=== PATIENT | female | born 1940 | race Caucasian/White ===

== ENCOUNTER → 2017-08-26 11:56 | Outpatient (CLI) | payer MEDICARE, SELFPAY ==
--- NOTE | 2017-08-26 12:03 | RAD_ITS ---
STUDY: X-RAY - LUMBAR SPINE REASON FOR EXAM: Female, 77 years old. Lower back pain TECHNIQUE: 5 view(s) of the lumbar spine were obtained. COMPARISON: None FINDINGS: Normal lumbar lordosis. There is no substantial scoliosis. There is a normal alignment of the vertebrae. There is generalized demineralization of the vertebral bodies. There is multi-level degenerative disc disease with multi-level disc space narrowing. The soft tissue structures are unremarkable. RAD/L/S Spine Min 4 Views IMPRESSION: Degenerative changes of the spine, as detailed above. Electronically Signed: James Little MD at 7:25 EDT Tel , Service support ,
--- NOTE | 2017-08-26 12:03 | RAD_ITS ---
STUDY: X-RAY - PELVIS AND LEFT HIP REASON FOR EXAM: Female, 77 years old. LOW BACK PAIN TECHNIQUE: Radiological exam, hip, unilateral, with pelvis when performed; 2 or 3 views. COMPARISON: None. FINDINGS: There is a non-specific bowel gas pattern. Normal visualized soft tissue structures. There is narrowing with cortical sclerosis and osteophyte formation of the sacroiliac joint consistent with degenerative osteoarthritic changes. Normal bilateral superior and inferior pubic rami. There are degenerative changes of the pubic symphysis with articular narrowing and sclerosis. Normal bilateral ischial tuberosities. There are osteoarthritic changes of the femoral head with marginal osteophyte formation. There is osteoarthritic spur formation of the acetabular rim. Severe articular joint space narrowing of the hip. RAD/Hip 2-3 Views with Pelvis IMPRESSION: There are osteoarthritic changes of the pelvis and hip. Electronically Signed: James Little MD at 7:33 EDT Tel , Service support ,
== END ==
PROVIDERS: Family Provider Internal Medicine; PCP Internal Medicine; Visit Provider Anesthesiology Pain Medicine
DX: M54.9 Dorsalgia, unspecified (principal)
CPT/HCPCS: 72110; 73502

== ENCOUNTER 2017-09-29 11:30 | Outpatient (RCR) | payer MEDICARE, SELFPAY ==
--- NOTE | 2017-08-28 14:54 | HP.PTEVAL_ITS ---
Patient's Visit Information HIRA VILLARREAL is a 77 year old F referred to Physical Therapy by Kehinde Jang with a diagnosis of Back and Hip Pain. Date of Evaluation: 08/28/17 Physical Therapist: Maggie Abdullahi, PT - Visit Plan Frequency: 2x /Week Duration: 4 Weeks Plan: Therapeutic exercises and activities to target BLE, core and low back strength, endurance and range of motion on land and in an aquatic setting. Gait training and Postural training for improved mobility. Modalities and Manual as needed to decrease pain and increase range of motion. Incorporate HEP to promote maintainence and independence. - Subjective Subjective: Patient presents in therapy today with chief complaint left buttock pain. Noticed it first a couple months ago when pulling weeds as a little twinge but progressly has gotten worse. Pain worsens when walking and sometimes when lying. Pain feels better when sitting but not completely better. She has been taking ibuprofen and milaxican to help relieve pain. She had x-rays done of left hip and low back showing normal degenerative changes. No reports or numbness or tingling. PMHx: fall causing 6 broken ribs and collar bone 5 years ago, diabetes - Pain low back pain Pain Intensity (Out of 10): 0 Pain Intensity Range: 0, 5 Comment: worsen with prolonged walking - Objective Posture: Sitting slouched with increased posterior pelvic tilt in chair; Static standing upright equal WB through BLE forward, protruded cervical spine, good lordosis. Appearance: No swelling. Palpation: Tenderness to palpation along left piriformis; Tightness of bilateral lumbar paraspinals; ASIS, medial malleoli and ischial tub equal. Sensation: Intact to light touch. Range of Motion: Lumbar flexion WNL, lumbar extension moderate limitation and pain, lumbar left rotation moderate limitation and pain, lumbar right rotation mild limitation, left/right sidebending minimal limitation. Hips/ knees WFL. Strength: RLE grossly 4+/5 strength except right hip abduction 4/5, hip extension 4/5, hip flexion 4/5; LLE grossly 4/5 except left hip flexion 4-/5, left hip abduction 4-/5; core 3/5 strength. Flexibility: Moderate tightness of bilateral piriformis muscles, L > R; Hamstring -15* knee extension bilaterally. Gait: Patient ambulating with flat foot to shuffling progression with equal stance time bilaterally; Mild hip drop bilaterally. Repeated movements: Patient had increased pain, however, centralizing with repeated extension 2 x 10 - Goals Goal 1:: Patient will increase core strength by 1 muscle grade for improved posture Goal Time Frame: 4-6 Weeks Goal 2:: Patient will increase lumbar range of motion in all planes for improved mobility Goal Time Frame: 4-6 Weeks Goal 3:: Patient will increase hamstring flexibility by 5* bilaterally for improved mobility Goal Time Frame: 4-6 Weeks Goal 4:: Patient will increase LLE to match RLE for improved performance with functional mobility tasks Goal Time Frame: 4-6 Weeks - Rehabilitation Potential Physical Therapy Diagnosis: Muscle Weakness, Limited Range of Motion Rehabilitation Potential: Fair - Anticipated Interventions Patient/Client Instruction: Educate patient on: Condition, Plan of Care For the Purpose of:: To decrease pain, To increase ROM, To improve muscle performance and motor function, To improve ability to perform ADL's, To improve performance and independence with ADL's, To improve ability of physical actions for home/community/work/leisure, To increase flexibility/ROM, To improve endurance Therapeutic Exercise to Include: Strength training, Endurance training, Body mechanics, Postural training, Flexibilty training, Gait and locomotor training, In an aquatic setting, Passive ROM, Active ROM, Dynamic Lumbar Stabilization, Junie Exercises For the Purpose of:: To increase ROM, To improve muscle performance and motor function, To improve ability to perform ADL's, To improve ability of physical actions for home/community/work/leisure, To improve gait and locomotor functions , To increase flexibility/ROM, To improve endurance, To improve safety with gait Functional Training to Include: Gait training For the Purpose of:: To improve ability of physical actions for home/community/ work/leisure, To improve gait and locomotor functions Comment: massage not covered by insurance For the Purpose of:: To decrease pain, To increase ROM, To increase flexibility/ ROM Iontophoresis (with Dexamethozone, with Acetic acid): No - not covered by insurance For the Purpose of:: To decrease pain, To increase ROM, To increase flexibility/ ROM Thank you for the opportunity to evaluate your patient. For Medicare and Medicare HMO plans, please review the plan of care and approve it. It will need to be FAXED BACK to us at [phone] for Medicare purposes. Please let me know if there are questions or concerns regarding this plan of care. Physician Signature: Date:
--- NOTE | 2017-09-29 12:01 | HP.PTDCSUM ---
HP - PT D/C Summary It has been my pleasure to treat HIRA VILLARREAL under orders from Kehinde Jang, for the diagnosis of Back and Hip Pain for a total of 10 visit(s). Discharge Date: 09/29/17 Please see the following information for a summary of their discharge status. - Subjective Subjective: Had injection a month ago and sent for PT. It really has not helped. Took x james t the time but no MRI. L leg still hurts lateral hip to front of knee and stops into buttock, not in LB. Injection was in back. Pain gets to 8/10 lateral hip with walking which gets much better upon sitting. Hurts going to bed lying on L side. No falls. Currently no pain. Sees Dr. Jang next week. - Pain low back pain Pain Intensity (Out of 10): 0 - Overall Improvement % Improvement: 0 - Objective Objective/Function: AROM L hip rotations are painful groin and limited slightly as compared to R at 40 degrees ext rot adn 8 IR. Is painful to walk today, felxibility in L HS to 90/90 test is -25. Strength in B hips is 4/5 without pain. has pain with end range PROm rotations and with scour test at hip. LB AROM painfree and only minimally limited. CLINICALLY LOOKS LIKE HIP DEGENERATION MAY BE MAJORITY OF THE PROBLEM. OT NOT HELPING AND RECOMMEND RETURN TO DOCTOR FOR NEXT MEDICAL STEP. - Goals Goal 1:: Patient will increase core strength by 1 muscle grade for improved posture Goal Progress: Not Progressing Goal 2:: Patient will increase lumbar range of motion in all planes for improved mobility Goal Progress: Not Progressing Goal 3:: Patient will increase hamstring flexibility by 5* bilaterally for improved mobility Goal Progress: Not Progressing Goal 4:: Patient will increase LLE to match RLE for improved performance with functional mobility tasks Goal Progress: Not Progressing - Plan Plan: D/C, BACK TO DOCTOR. - D/C Information Discharge Comments: nO IMPROVEMENT. lOOKS TO BE HIP ARTHRITIS TO ME. rECOMMEND PATIENT BACK TO DOCTOR FOR NEXT MEDICAL STEP. If there are questions or concerns regarding this patient's physical therapy, please feel free to call me at [phone]. Thank you for the referral of this patient. Sincerely, Nnamdi Miller, DPT, OC
== END 2017-09-29 19:00 | disposition home or self-care (01) ==
LOC: PT 11:30
PROVIDERS: Family Provider Internal Medicine; PCP Internal Medicine; Visit Provider Anesthesiology Pain Medicine
DX: M54.9 Dorsalgia, unspecified (principal); M79.643 Pain in unspecified hand
CPT/HCPCS: 97110; 97113; 97162; 97530

== ENCOUNTER 2017-11-18 20:26 | Observation (INO) | payer MEDICARE, SELFPAY ==
[2017-11-18 20:28] VITALS: BP 96/47; PULSE 107; RESP 18; TEMP 38; O2SAT 99; BMI 25.7
--- NOTE | 2017-11-18 20:51 | EKG12_ITS ---
Test Reason : Blood Pressure : / mmHG Vent. Rate : 098 BPM Atrial Rate : 098 BPM P-R Int : 130 ms QRS Dur : 084 ms QT Int : 324 ms P-R-T Axes : 034 043 043 degrees QTc Int : 413 ms Normal sinus rhythm Nonspecific ST abnormality Abnormal ECG Confirmed by RAÚL GARRIDO, BRAULIO ([id number]), science editor DAMIAN BLAKELY ([id number]) on 11/23/2017 3:14:44 PM Referred By: YOLANDA Confirmed By:BRAULIO OLSEN MD
[2017-11-18 20:55] LABS: Bedside Glucose 154 mg/dL (70-110)
--- NOTE | 2017-11-18 20:55 | RAD_ITS ---
STUDY: X-RAY CHEST REASON FOR EXAM: Female, 77 years old. Fever TECHNIQUE: Single frontal view COMPARISON: June 14, 2013 FINDINGS: The lungs are clear and expanded. There is no demonstrated pleural abnormality. Normal size heart. Normal mediastinum and juan a. Normal visualized pulmonary arteries. Normal visualized aortic arch and descending thoracic aorta. Mild degenerative changes of the visualized thoracic spine. Old left clavicular and left rib fractures. There is no demonstrated abnormality of the visualized soft tissue structures of the upper abdomen. RAD/Chest 1 View (Portable) IMPRESSION: No acute pulmonary pathology of the chest. Electronically Signed: Yao Mullins DO at 21:09 EDT Tel [phone], Service support ,
[2017-11-18 20:56] VITALS: TEMP 36.7
[2017-11-18 21:15] VITALS: BP 121/59; PULSE 97; RESP 26; O2SAT 100
--- NOTE | 2017-11-18 21:15 | CT_ITS ---
STUDY: CT BRAIN WITHOUT CONTRAST REASON FOR EXAM: Female, 77 years old. Confusion RADIATION DOSAGE (If Supplied By Facility): CTDIvol = ( 44.99 ) mGy, DLP = ( 745.49 ) mGycm TECHNIQUE: Transaxial CT imaging of the brain was performed without administration of intravenous contrast material. Individualized dose optimization techniques were used for this CT. COMPARISON: None. FINDINGS: Normal soft tissue structures. Normal calvarium. Normal size ventricles and extra-axial spaces for the patient's age. Mild white matter microangiopathic ischemic changes of the cerebral hemispheres. Normal basal ganglia and thalami. Normal brainstem. Normal cerebellum. There is no intracranial hemorrhage. There are no findings of an acute ischemic infarction. Normal visualized paranasal sinuses. CT/Brain/Head without Contrast IMPRESSION: Mild age-related changes of the brain. Electronically Signed: Yao Mullins DO at 21:46 EDT Tel [phone], Service support ,
--- NOTE | 2017-11-18 21:15 | ED.VISSUMM ---
- ER Visit Summary Date of Service: 11/18/17 Chief Complaint: Confusion History of Present Illness: The patient is a 77 F who presents for 1 week of confusion. History is provided mainly by the . He states patient is becoming more forgetful for the last several months. However for the last week she has been sleeping 24 hours a day. He woke her up and took her to druze, and members of the sabianism noticed how somnolent she was. She has had decreased urine output and increased confusion. She was diagnosed with a urine infection and dehydration a few days ago by her primary care doctor. She was placed on Keflex and has had 3 doses. She continues to have increased confusion and somnolence. Patient denies any fever, chest pain, shortness of breath, cough, abdominal pain, nausea or vomiting, urinary symptoms, headache or any other complaints. Patient has history of diabetes, hypertension and hypercholesterolemia. She is on donepezil. She lives with family. No known recent head trauma. Patient does have a history of a traumatic intracranial hemorrhage 5 years ago. Physical Examination: Vital signs: Febrile at 100.4, mildly hypotensive, tachycardic at 107, no hypoxia on room air General: well nourished, well developed, in no distress, ambulates easily with assistance Skin: warm, dry, no rash, no pallor HEENT: normocephalic and atraumatic; PERRL, EOMI, moist mucous membranes Cardiovascular: Tachycardic rate and rhythm without murmurs, no peripheral edema, 2+ pulses all distal extremities Respiratory: No increased work of breathing, lungs are clear to auscultation bilaterally, no rales, rhonchi or wheezing Abdominal: Abdomen is soft, nontender with normoactive bowel sounds, no guarding or rebound, no masses MSK: Moves all extremities, no deformities, normal strength Neuro: Awake and alert, oriented ?4. No facial droop, sensation and motor function intact and symmetric Test Results: Abnormal Lab Results 11/18/17 11/18/17 11/18/17 20:48 20:55 20:55 WBC 14.9 H RBC 4.26 Hgb 12.8 Hct 37.2 MCV 87.3 MCH 30.0 MCHC 34.4 RDW 12.4 RDW Differential 39.3 Plt Count 339 MPV 11.7 Immature Gran % (Auto) 0.400 Neut % (Auto) 80.7 H Lymph % (Auto) 6.8 L [place] % (Auto) 11.7 H Eos % (Auto) 0.1 Baso % (Auto) 0.3 Absolute Neuts (auto) 12.1 H Absolute Lymphs (auto) 1.02 Total Counted Not Reportable Differential Comment SCANNED PT 13.9 INR 1.1 APTT 29.9 Sodium Potassium Chloride Carbon Dioxide Anion Gap BUN Creatinine Estim Creat Clear Calc Est GFR (MDRD) Af Amer Est GFR (MDRD) Non-Af BUN/Creatinine Ratio Glucose Lactic Acid Calcium Total Bilirubin AST ALT Alkaline Phosphatase Total Creatine Kinase Troponin I Total Protein Albumin Globulin Albumin/Globulin Ratio Urine Color Urine Clarity Urine pH Ur Specific [place] Urine Protein Urine Glucose (UA) Urine Ketones Urine Occult Blood Urine Nitrite Urine Bilirubin Urine Urobilinogen Ur Leukocyte Esterase Urine RBC Urine WBC Ur Squamous Epith Cells Urine Bacteria Urine Mucus POC Glucose 154 H 11/18/17 11/18/17 11/18/17 20:55 21:40 21:53 WBC RBC Hgb Hct MCV MCH MCHC RDW RDW Differential Plt Count MPV Immature Gran % (Auto) Neut % (Auto) Lymph % (Auto) Maury % (Auto) Eos % (Auto) Baso % (Auto) Absolute Neuts (auto) Absolute Lymphs (auto) Total Counted Differential Comment PT INR APTT Sodium 134 L Potassium 3.9 Chloride 98 Carbon Dioxide 28.0 Anion Gap 8 BUN 22 H Creatinine 1.28 H Estim Creat Clear Calc 34.46 Est GFR (MDRD) Af Amer 52 L Est GFR (MDRD) Non-Af 43 L BUN/Creatinine Ratio 17.2 Glucose 155 H Lactic Acid 1.2 Calcium 8.8 Total Bilirubin 1.00 AST 11 L ALT 25 Alkaline Phosphatase 100 Total Creatine Kinase 40 Troponin I < 0.015 Total Protein 7.1 Albumin 2.8 L Globulin 4.3 H Albumin/Globulin Ratio 0.7 L Urine Color Yellow Urine Clarity Sl. Cloudy Urine pH 5.0 Ur Specific [place] 1.010 Urine Protein 100 H Urine Glucose (UA) Normal Urine Ketones Negative Urine Occult Blood 150 H Urine Nitrite Negative Urine Bilirubin Negative Urine Urobilinogen Normal Ur Leukocyte Esterase 500 H Urine RBC 0-5 SEEN Urine WBC 10-25 SEEN Ur Squamous Epith Cells 0 SEEN Urine Bacteria 0 SEEN Urine Mucus 0 SEEN POC Glucose Clinical Impression(s) from Imaging Studies Chest X-Ray 11/18/17 20:55 IMPRESSION: No acute pulmonary pathology of the chest. Electronically Signed: Yao Mullins DO at 21:09 EDT Tel [phone], Service support , Brain CT 11/18/17 21:15 IMPRESSION: Mild age-related changes of the brain. Electronically Signed: Yao Mullins DO at 21:46 EDT Tel [phone], Service support , Medications Given Sodium Chloride () 1,000 mls @ 250 mls/hr IV .Q4H MO Last Admin: 11/18/17 23:33 Dose: 250 mls/hr Admin: 11/18/17 21:31 Dose: 250 mls/hr Discontinued Medications Ceftriaxone Sodium (Rocephin) 1 gm in 50 mls @ 100 mls/hr IV X1 ONE Stop: 11/18/17 23:40 Last Admin: 11/18/17 23:33 Dose: 100 mls/hr Emergency Department Course and Treatment: She presents with increased confusion, somnolence, on outpatient treatment for UTI, febrile and tachycardic. This is concerning for possible sepsis. Sepsis workup was performed. Patient was given IV fluids. Head CT was performed given the confusion and showed no intracranial hemorrhage or mass lesions. Labs were remarkable for leukocytosis of 14.9. Chest x-ray showed no pneumonia. Urine was positive for infection. Urine culture is pending. Lactate was normal at 1.2. EKG showed no ischemic changes and troponin was negative. Patient was started on Rocephin. Patient will be admitted for further management of acute cystitis and sepsis. Treatment Plan: [] Disposition: [] Impression: Urinary tract infection, cystitis, change in mental status This note was generated with [employer] software. It may contain incorrect words, spelling, and punctuation that were not noted in review of the chart prior to signing ED Disposition - Plan for ED Patient: Chief Complaint: Confusion Referrals: Ricardo Soliz MD [Primary Care Provider] -
--- NOTE | 2017-11-18 21:18 | ED.DCSUM_ITS ---
- ER Visit Summary Date of Service: 11/18/17 Chief Complaint: Confusion History of Present Illness: The patient is a 77 F who presents for 1 week of confusion. History is provided mainly by the . He states patient is becoming more forgetful for the last several months. However for the last week she has been sleeping 24 hours a day. He woke her up and took her to hindu, and members of the pentecostalism noticed how somnolent she was. She has had decreased urine output and increased confusion. She was diagnosed with a urine infection and dehydration a few days ago by her primary care doctor. She was placed on Keflex and has had 3 doses. She continues to have increased confusion and somnolence. Patient denies any fever, chest pain, shortness of breath, cough, abdominal pain, nausea or vomiting, urinary symptoms, headache or any other complaints. Patient has history of diabetes, hypertension and hypercholesterolemia. She is on donepezil. She lives with family. No known recent head trauma. Patient does have a history of a traumatic intracranial hemorrhage 5 years ago. Physical Examination: Vital signs: Febrile at 100.4, mildly hypotensive, tachycardic at 107, no hypoxia on room air General: well nourished, well developed, in no distress, ambulates easily with assistance Skin: warm, dry, no rash, no pallor HEENT: normocephalic and atraumatic; PERRL, EOMI, moist mucous membranes Cardiovascular: Tachycardic rate and rhythm without murmurs, no peripheral edema, 2+ pulses all distal extremities Respiratory: No increased work of breathing, lungs are clear to auscultation bilaterally, no rales, rhonchi or wheezing Abdominal: Abdomen is soft, nontender with normoactive bowel sounds, no guarding or rebound, no masses MSK: Moves all extremities, no deformities, normal strength Neuro: Awake and alert, oriented ?4. No facial droop, sensation and motor function intact and symmetric Test Results: Abnormal Lab Results 11/18/17 11/18/17 11/18/17 20:48 20:55 20:55 WBC 14.9 H RBC 4.26 Hgb 12.8 Hct 37.2 MCV 87.3 MCH 30.0 MCHC 34.4 RDW 12.4 RDW Differential 39.3 Plt Count 339 MPV 11.7 Immature Gran % (Auto) 0.400 Neut % (Auto) 80.7 H Lymph % (Auto) 6.8 L [place] % (Auto) 11.7 H Eos % (Auto) 0.1 Baso % (Auto) 0.3 Absolute Neuts (auto) 12.1 H Absolute Lymphs (auto) 1.02 Total Counted Not Reportable Differential Comment SCANNED PT 13.9 INR 1.1 APTT 29.9 Sodium Potassium Chloride Carbon Dioxide Anion Gap BUN Creatinine Estim Creat Clear Calc Est GFR (MDRD) Af Amer Est GFR (MDRD) Non-Af BUN/Creatinine Ratio Glucose Lactic Acid Calcium Total Bilirubin AST ALT Alkaline Phosphatase Total Creatine Kinase Troponin I Total Protein Albumin Globulin Albumin/Globulin Ratio Urine Color Urine Clarity Urine pH Ur Specific [place] Urine Protein Urine Glucose (UA) Urine Ketones Urine Occult Blood Urine Nitrite Urine Bilirubin Urine Urobilinogen Ur Leukocyte Esterase Urine RBC Urine WBC Ur Squamous Epith Cells Urine Bacteria Urine Mucus POC Glucose 154 H 11/18/17 11/18/17 11/18/17 20:55 21:40 21:53 WBC RBC Hgb Hct MCV MCH MCHC RDW RDW Differential Plt Count MPV Immature Gran % (Auto) Neut % (Auto) Lymph % (Auto) [place] % (Auto) Eos % (Auto) Baso % (Auto) Absolute Neuts (auto) Absolute Lymphs (auto) Total Counted Differential Comment PT INR APTT Sodium 134 L Potassium 3.9 Chloride 98 Carbon Dioxide 28.0 Anion Gap 8 BUN 22 H Creatinine 1.28 H Estim Creat Clear Calc 34.46 Est GFR (MDRD) Af Amer 52 L Est GFR (MDRD) Non-Af 43 L BUN/Creatinine Ratio 17.2 Glucose 155 H Lactic Acid 1.2 Calcium 8.8 Total Bilirubin 1.00 AST 11 L ALT 25 Alkaline Phosphatase 100 Total Creatine Kinase 40 Troponin I < 0.015 Total Protein 7.1 Albumin 2.8 L Globulin 4.3 H Albumin/Globulin Ratio 0.7 L Urine Color Yellow Urine Clarity Sl. Cloudy Urine pH 5.0 Ur Specific [place] 1.010 Urine Protein 100 H Urine Glucose (UA) Normal Urine Ketones Negative Urine Occult Blood 150 H Urine Nitrite Negative Urine Bilirubin Negative Urine Urobilinogen Normal Ur Leukocyte Esterase 500 H Urine RBC 0-5 SEEN Urine WBC 10-25 SEEN Ur Squamous Epith Cells 0 SEEN Urine Bacteria 0 SEEN Urine Mucus 0 SEEN POC Glucose Clinical Impression(s) from Imaging Studies Chest X-Ray 11/18/17 20:55 IMPRESSION: No acute pulmonary pathology of the chest. Electronically Signed: Yao Mullins DO at 21:09 EDT Tel [phone], Service support , Brain CT 11/18/17 21:15 IMPRESSION: Mild age-related changes of the brain. Electronically Signed: Yao Mullins DO at 21:46 EDT Tel [phone], Service support , Medications Given Sodium Chloride () 1,000 mls @ 250 mls/hr IV .Q4H MO Last Admin: 11/18/17 23:33 Dose: 250 mls/hr Admin: 11/18/17 21:31 Dose: 250 mls/hr Discontinued Medications Ceftriaxone Sodium (Rocephin) 1 gm in 50 mls @ 100 mls/hr IV X1 ONE Stop: 11/18/17 23:40 Last Admin: 11/18/17 23:33 Dose: 100 mls/hr Emergency Department Course and Treatment: She presents with increased confusion, somnolence, on outpatient treatment for UTI, febrile and tachycardic. This is concerning for possible sepsis. Sepsis workup was performed. Patient was given IV fluids. Head CT was performed given the confusion and showed no intracranial hemorrhage or mass lesions. Labs were remarkable for leukocytosis of 14.9. Chest x-ray showed no pneumonia. Urine was positive for infection. Urine culture is pending. Lactate was normal at 1.2. EKG showed no ischemic changes and troponin was negative. Patient was started on Rocephin. Patient will be admitted for further management of acute cystitis and sepsis. Treatment Plan: [] Disposition: [] Impression: Urinary tract infection, cystitis, change in mental status This note was generated with [employer] software. It may contain incorrect words, spelling, and punctuation that were not noted in review of the chart prior to signing ED Disposition - Plan for ED Patient: Chief Complaint: Confusion Referrals: Ricardo Soliz MD [Primary Care Provider] -
[2017-11-18] MEDS: 0.9% Normal Saline 1,000 ML 250 ML IV ×2 (21:31→23:33)
[2017-11-18 22:01] VITALS: BP 120/64; PULSE 95; RESP 17; O2SAT 100
[2017-11-18 22:01] LABS: Bacteria 0 SEEN /hpf (None Seen); Mucous, Urine 0 SEEN /hpf (<or=2+); Squamous Epithelial Cells - UA 0 SEEN /hpf (5-10)
[2017-11-18 22:04] LABS: Absolute Lymphocyte Count 1.02 X10^3/ul (0.83-4.51); Absolute Neutrophil Count 12.1 X10^3/uL (2.0-7.7); Basophil# 0.04 X10^3/uL; Basophil% 0.3 % (0-1); Eosinophil# 0.01 X10^3/uL; Eosinophils% 0.1 % (0-5); Hematocrit 37.2 % (37-47); Hemoglobin 12.8 g/dl (12.0-15.0); Lymphocyte # 1.02 X10^3/ul (4.0); Lymphocyte % 6.8 % (19-41); Mean Corp Hgb Conc 34.4 g/gl (32-36); Mean Corpuscular Volume 87.3 fL (81-99); Mean Platelet Vol. 11.7 fl (6.2-12.0); Monocyte# 1.75 X10^3/uL; Monocyte% 11.7 % (0-10); Neutrophil # 12.05 X10^3/uL (2.7-7.7); Neutrophil % 80.7 % (47-70); Platelet Count 339 K/mm3 (150-450); RBC Distribution Width CV 12.4 % (11.6-14.6); RBC Distribution Width SD 39.3 fl (35.1-43.9); Red Blood Count 4.26 M/mm3 (4.2-5.4); White Blood Count 14.9 K/mm3 (4.4-11.0)
[2017-11-18 22:06] LABS: International Normalized Ratio 1.1; Prothrombin Time (Protime)PT. 13.9 SECONDS (11.7-14.9)
[2017-11-18 22:07] LABS: Differential Indicated SCAN CRITERIA MET; POSITIVE COUNT NO; POSITIVE DIFFERENTIAL YES; POSITIVE MORPHOLOGY NO; Partial Thromboplast Time 29.9 Seconds (24.1-36.2)
[2017-11-18 22:14] LABS: ALB/GLOB Ratio 0.7 RATIO (0.9-2.4); AST(SGOT) 11 U/L (15-37); Alanine Aminotransfer ALT/SGPT 25 U/L (13-56); Albumin, Serum 2.8 g/dL (3.2-5.0); Alkaline Phosphatase 100 U/L (45-117); Anion Gap 8 (5-15); BUN 22 mg/dL (7-18); BUN/Creat Ratio 17.2 RATIO (10-20); CPK Total, Creatine Kinase 40 U/L (26-192); Calcium,Total 8.8 mg/dL (8.5-10.1); Chloride 98 mmol/L (98-107); Creatinine, Serum 1.28 mg/dL (0.55-1.02); EST Glomerular Filtration Rate 43 mL/min (>60); Est Glom Filt Rate - Afr Amer 52 mL/min (>60); Estimated Creatinine Clearance 34.46 ml/min; Globulin 4.3 g/dL (2.2-4.2); Glucose 155 mg/dL (74-106); Potassium 3.9 mmol/L (3.5-5.1); Protein, Total 7.1 g/dL (6.4-8.2); Sodium Level 134 mmol/L (136-145)
[2017-11-18 22:22] LABS: Lactic Acid 1.2 mmol/L (0.4-2.0)
[2017-11-18 22:23] LABS: Color, Urine Yellow (Yellow); Glucose, Dipstick Normal (Normal); Ketone-Dipstick Negative (Negative); Leukocyte Esterase-Dipstick 500 /ul (Negative); Nitrite-Dipstick Negative (Negative); Occult Blood-Urine 150 /ul (Negative); Protein-Dipstick 100 mg/dl (Negative); Urine Bilirubin Dipstick Negative (Negative); Urine Clarity Sl. Cloudy (Clear); Urine Urobilinogen Normal (Normal)
[2017-11-18 22:28] LABS: Red Blood Cells-Urine 0-5 SEEN /hpf (0-5); White Blood Cells 10-25 SEEN /hpf (0-5)
[2017-11-18 22:29] LABS: Differential Comment SCANNED
[2017-11-18 23:08] VITALS: BP 184/90; PULSE 64; RESP 16; O2SAT 96
--- NOTE | 2017-11-18 23:18 | HP.PCM_ITS ---
Problem List (1) Acute encephalopathy Status: Acute (2) Type 2 diabetes mellitus Status: Chronic (3) Hypertension Status: Chronic (4) Anxiety Status: Chronic (5) Acute cystitis Status: Acute History of Present Illness Date of Admission: 11/18/17 Chief Complaint: decrease urine output and increase confusion Patient was seen and examined at 2355 on 11/18/2017 The patient is a 77 year old F with a significant history of early dementia ; hypertension, diabetes, hyperlipidemia, who presents with progressively worsening lethargy that started about a week ago. Her reports that 4-5 days ago patient slept all day prompting thyroid function test at PCP' office. Her reports that it took a long time for patient to be able to produce any urine requested by PCP and it was felt the patient was dehydrated. Her PCP who diagnosed her with dehydration and cystitis. Also patient has been having increased confusion and forgetfulness. Her reports that patient was so forgetful to the point that she was unable to unlock the car door and also to to get her seat belts off. Outpatient patient was started on Keflex on the same day of admission. Patient took 3 doses of Keflex but because her symptoms continued to worsen she was brought to the emergency department. At emergency department patient was found to have a temperature of 100.4; Low blood pressure and leukocytosis. Her urinalysis was abnormal. Past Medical History Past Medical History (Chronic Problems): Chronic Problems Hyperlipidemia (Chronic) Depression (Chronic) Overweight (BMI 25.0-29.9) (Chronic) Type 2 diabetes mellitus (Chronic) Hypertension (Chronic) Anxiety (Chronic) Allergies No Known Allergies Allergy (Verified 11/18/17 20:27) Home Medications: Ambulatory Orders Medication Instructions Recorded Aspirin E.C. [Ecotrin] 81 mg PO DAILY@0800 06/14/13 Biotin 500 mcg PO DAILY 06/14/13 Chlorhexidine Gluconate [Peridex] 15 ml MM BID 06/14/13 DiphenhydrAMINE [Benadryl] 25 mg PO QHS PRN PRN 06/14/13 Glipizide [Glucotrol Xl] 5 mg PO DAILY 06/14/13 Glucosamine Sulfate Dipot Chlr 1,000 mg PO DAILY 06/14/13 [Glucosamine Relief] Metformin HCl [Glucophage] 1,000 mg PO DAILY 06/14/13 [place]-3 Fatty Acids/Fish Oil [Fish 1 each PO DAILY 06/14/13 Oil 1,000 mg Softgel] Simvastatin [Zocor] 5 mg PO QHS 06/14/13 Ubidecarenone [Co Q-10] 100 mg PO DAILY 06/14/13 Valsartan/Hydrochlorothiazide 1 tablet PO DAILY 06/14/13 [Diovan Hct 160-12.5 MG Tab] buPROPion XL [Wellbutrin Xl] 300 mg PO DAILY 06/14/13 Amlodipine [Norvasc] 2.5 mg PO DAILY 11/18/17 Cephalexin 500 mg PO TID 11/18/17 Donepezil HCl [Donepezil HCl Odt] 10 mg PO DAILY 11/18/17 Meloxicam 7.5 mg PO DAILY 11/18/17 Surgical History: appendectomy, colectomy, hysterectomy, - - Knee surgery Psychiatric History: Anxiety, Depression 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 Denies: Dysuria Musculoskeletal: Denies: Joint Pain, Joint Tenderness Skin: Denies: Rash, Wounds Neurological: Reports: Confusion. Denies: Focal weakness, Numbness, Tingling Psychiatric: Denies: Anxiety, Depression, Homicidal Ideations, Suicidal Ideations Hematologic/ Lymphatic: Denies: Easy Bruising, Easy Bleeding VTE Information - Inpt Only VTE Present on Admission: No VTE Mechan Device Prophylaxis: None VTE Pharm Prophylaxis ordered?: Yes Patient Problems: Active and Suspected Problems Acute encephalopathy (Acute) Acute cystitis (Acute) - Physical Exam General: Alert, Oriented x3, Cooperative, - - Patient was hesistant on the year that we were in. However she could verbalize the year. She admitted to being confused while at home. HEENT: Atraumatic, PERRLA, EOMI, Normocephalic Neck: Supple, No JVD, Negative Carotid Bruits Vital Signs Temp Pulse Resp BP Pulse Ox 98.1 F 64 16 184/90 H 96 11/18/17 20:56 11/18/17 23:08 11/18/17 23:08 11/18/17 23:08 11/18/17 23:08 Oxygen Flow Rate (L/min) 2 Oxygen Delivery Method Room Air Weight: 72.3 kg Body Mass Index (BMI) 25.7 Finger Stick Blood Glucose 154 Laboratory Tests Past 24 Hrs 11/18/17 11/18/17 11/18/17 20:55 20:55 20:55 WBC 14.9 H RBC 4.26 Hgb 12.8 Hct 37.2 MCV 87.3 MCH 30.0 MCHC 34.4 RDW 12.4 RDW Differential 39.3 Plt Count 339 MPV 11.7 Immature Gran % (Auto) 0.400 Neut % (Auto) 80.7 H Lymph % (Auto) 6.8 L [place] % (Auto) 11.7 H Eos % (Auto) 0.1 Baso % (Auto) 0.3 Absolute Neuts (auto) 12.1 H Absolute Lymphs (auto) 1.02 Total Counted Not Reportable Differential Comment SCANNED PT 13.9 INR 1.1 APTT 29.9 Sodium 134 L Potassium 3.9 Chloride 98 Carbon Dioxide 28.0 Anion Gap 8 BUN 22 H Creatinine 1.28 H Estim Creat Clear Calc 34.46 Est GFR (MDRD) Af Amer 52 L Est GFR (MDRD) Non-Af 43 L BUN/Creatinine Ratio 17.2 Glucose 155 H Lactic Acid Calcium 8.8 Total Bilirubin 1.00 AST 11 L ALT 25 Alkaline Phosphatase 100 Total Creatine Kinase 40 Troponin I < 0.015 Total Protein 7.1 Albumin 2.8 L Globulin 4.3 H Albumin/Globulin Ratio 0.7 L Urine Color Urine Clarity Urine pH Ur Specific [place] Urine Protein Urine Glucose (UA) Urine Ketones Urine Occult Blood Urine Nitrite Urine Bilirubin Urine Urobilinogen Ur Leukocyte Esterase Urine RBC Urine WBC Ur Squamous Epith Cells Urine Bacteria Urine Mucus 11/18/17 11/18/17 21:40 21:53 WBC RBC Hgb Hct MCV MCH MCHC RDW RDW Differential Plt Count MPV Immature Gran % (Auto) Neut % (Auto) Lymph % (Auto) [place] % (Auto) Eos % (Auto) Baso % (Auto) Absolute Neuts (auto) Absolute Lymphs (auto) Total Counted Differential Comment PT INR APTT Sodium Potassium Chloride Carbon Dioxide Anion Gap BUN Creatinine Estim Creat Clear Calc Est GFR (MDRD) Af Amer Est GFR (MDRD) Non-Af BUN/Creatinine Ratio Glucose Lactic Acid 1.2 Calcium Total Bilirubin AST ALT Alkaline Phosphatase Total Creatine Kinase Troponin I Total Protein Albumin Globulin Albumin/Globulin Ratio Urine Color Yellow Urine Clarity Sl. Cloudy Urine pH 5.0 Ur Specific [place] 1.010 Urine Protein 100 H Urine Glucose (UA) Normal Urine Ketones Negative Urine Occult Blood 150 H Urine Nitrite Negative Urine Bilirubin Negative Urine Urobilinogen Normal Ur Leukocyte Esterase 500 H Urine RBC 0-5 SEEN Urine WBC 10-25 SEEN Ur Squamous Epith Cells 0 SEEN Urine Bacteria 0 SEEN Urine Mucus 0 SEEN POC Glucose 11/18/17 20:48 POC Glucose 154 H Assessment/Plan All Active Problems Acute encephalopathy (Acute) Acute cystitis (Acute) The patient is a 77 year old F with a significant history of early dementia ; h ypertension, diabetes, hyperlipidemia, who presents with progressively worsening lethargy and confusion that started about a week ago with SIRS; and abnormal urinalysis concerning for sepsis secondary to Cystitis. Acute encephalopathy secondary to sepsis from cystitis. Patient with a fever, leukocytosis; low blood pressure and increased confusion above her baseline. Patient received thousand mL's normal saline at emergency department and was started on broad-spectrum antibiotics of Septra also. Lactic acid was unremarkable. We will continue normal saline infusion at 75 mL's per hour. Ceftriaxone continued. Urine culture and blood cultures are pending. Chest x-ray independently reviewed confirms that there is no acute chest pathology. CT head with no acute pathology. Diabetes mellitus Blood glucose fairly controlled on admission Continue glipizide and Metformin. Accu-Chek q. before meals at bedtime. Hyperlipidemia Simvastatin and CoQ10 continued Hypertension On admission blood pressure was 96/47. In the setting of sepsis we will hold off home blood pressure medication at this time. Hydralazine blood hydralazine as needed for systolic blood pressure more than 160. Dementia Donepezil continued DVT prophylaxis subcutaneous heparin. Code Visit OBSV E&M: 84537 Initial observation care L3
[2017-11-18] MEDS: Ceftriaxone 1 GM/50 ML BAG IV (23:33)
[2017-11-19 00:07] VITALS: BP 106/50; PULSE 76; RESP 19; O2SAT 97
[2017-11-19 01:16] VITALS: BMI 25.0
[2017-11-19 01:39] VITALS: BP 110/56; PULSE 68; RESP 18; TEMP 37.6; O2SAT 96
[2017-11-19] MEDS: 0.9% Normal Saline 1,000 ML 75 ML IV ×2 (02:08→15:20)
[2017-11-19 06:00] LABS: Absolute Lymphocyte Count 1.66 X10^3/ul (0.83-4.51); Absolute Neutrophil Count 9.9 X10^3/uL (2.0-7.7); Basophil# 0.03 X10^3/uL; Basophil% 0.2 % (0-1); Eosinophil# 0.04 X10^3/uL; Eosinophils% 0.3 % (0-5); Hematocrit 36.3 % (37-47); Hemoglobin 12.3 g/dl (12.0-15.0); Lymphocyte # 1.66 X10^3/ul (4.0); Lymphocyte % 12.4 % (19-41); Mean Corp Hgb Conc 33.9 g/gl (32-36); Mean Corpuscular Hgb 29.6 pg (27.0-32.0); Mean Corpuscular Volume 87.3 fL (81-99); Monocyte# 1.68 X10^3/uL; Monocyte% 12.5 % (0-10); Neutrophil # 9.94 X10^3/uL (2.7-7.7); Neutrophil % 74.2 % (47-70); Platelet Count 274 K/mm3 (150-450); RBC Distribution Width CV 12.6 % (11.6-14.6); RBC Distribution Width SD 39.7 fl (35.1-43.9); Red Blood Count 4.16 M/mm3 (4.2-5.4); White Blood Count 13.4 K/mm3 (4.4-11.0)
[2017-11-19 06:11] LABS: Differential Indicated SCAN CRITERIA MET; POSITIVE COUNT NO; POSITIVE DIFFERENTIAL YES; POSITIVE MORPHOLOGY NO
[2017-11-19 06:14] LABS: Anion Gap 10 (5-15); BUN 19 mg/dL (7-18); BUN/Creat Ratio 18.6 RATIO (10-20); Calcium,Total 8.5 mg/dL (8.5-10.1); Chloride 104 mmol/L (98-107); Creatinine, Serum 1.02 mg/dL (0.55-1.02); EST Glomerular Filtration Rate 56 mL/min (>60); Est Glom Filt Rate - Afr Amer 67 mL/min (>60); Estimated Creatinine Clearance 44.92 ml/min; Glucose 131 mg/dL (74-106); Potassium 3.7 mmol/L (3.5-5.1); Sodium Level 137 mmol/L (136-145)
[2017-11-19 06:40] LABS: Bedside Glucose 118 mg/dL (70-110)
[2017-11-19 06:46] LABS: Differential Comment SCANNED
[2017-11-19 06:51] LABS: Bedside Glucose 115 mg/dL (70-110)
[2017-11-19 07:17] VITALS: O2SAT 95
--- NOTE | 2017-11-19 07:34 | PN_ITS ---
Patient Problems: Active and Suspected Problems Acute encephalopathy (Acute) Acute cystitis (Acute) Subjective: Patient is awake and alert but he still seems slow, lethargic. History was taken from the and patient was forgetful, acute cognitive deficit requiring frequent mental cues and directions to do simple things for last 4 days. Patient thinks he might have dementia but this happened acutely. Vitals/I&O's: Vital Signs Temp Pulse Resp BP Pulse Ox 99.7 F H 68 18 110/56 L 95 11/19/17 01:39 11/19/17 01:39 11/19/17 01:39 11/19/17 01:39 11/19/17 07:17 Oxygen Flow Rate (L/min) 2 Oxygen Delivery Method Room Air Weight: 159 lb 13.362 oz Body Mass Index (BMI) 25.0 Finger Stick Blood Glucose 154 Intake and Output for Last 24 Hours 11/17/17 11/18/17 11/19/17 23:59 23:59 23:59 Intake Total 460 / 460 Balance 460 / 460 General: Alert, Oriented x3, Cooperative, Lethargic HEENT: Atraumatic, PERRLA, EOMI, Normocephalic Oral: Dry Mucosa Neck: Supple, No JVD, Negative Carotid Bruits Lungs: Clear to auscultation, Normal air movement Cardiovascular: Regular rate, Regular Rhythm, Normal S1, Normal S2, No murmurs Abdomen: Bowel Sounds Present, Soft, Non Tender, Non-Distended Extremities: No edema, Capillary Refill Less than 3 Seconds Skin: No rashes, No breakdown Musculoskeletal: No Tenderness to Palpation of Joints or Extremities Neurological: Cranial nerves II-XII grossly intact Psych/Mental Status: Normal Affect, Appropriate Laboratory Results 11/18/17 20:48: POC Glucose 154 H 11/18/17 20:55: WBC 14.9 H, RBC 4.26, Hgb 12.8, Hct 37.2, MCV 87.3, MCH 30.0, MCHC 34.4, RDW 12.4, RDW Differential 39.3, Plt Count 339, MPV 11.7, Immature Gran % (Auto) 0.400, Neut % (Auto) 80.7 H, Lymph % (Auto) 6.8 L, [place] % (Auto) 11.7 H, Eos % (Auto) 0.1, Baso % (Auto) 0.3, Absolute Neuts (auto) 12.1 H, Absolute Lymphs (auto) 1.02, Total Counted Not Reportable, Differential Comment SCANNED 11/18/17 20:55: PT 13.9, INR 1.1, APTT 29.9 11/18/17 20:55: Sodium 134 L, Potassium 3.9, Chloride 98, Carbon Dioxide 28.0, Anion Gap 8, BUN 22 H, Creatinine 1.28 H, Estim Creat Clear Calc 34.46, Est GFR (MDRD) Af Amer 52 L, Est GFR (MDRD) Non-Af 43 L, BUN/Creatinine Ratio 17.2, Glucose 155 H, Calcium 8.8, Total Bilirubin 1.00, AST 11 L, ALT 25, Alkaline Phosphatase 100, Total Creatine Kinase 40, Troponin I < 0.015, Total Protein 7.1, Albumin 2.8 L, Globulin 4.3 H, Albumin/Globulin Ratio 0.7 L 11/18/17 21:40: Lactic Acid 1.2 11/18/17 21:53: Urine Color Yellow, Urine Clarity Sl. Cloudy, Urine pH 5.0, Ur Specific [place] 1.010, Urine Protein 100 H, Urine Glucose (UA) Normal, Urine Ketones Negative, Urine Occult Blood 150 H, Urine Nitrite Negative, Urine Bilirubin Negative, Urine Urobilinogen Normal, Ur Leukocyte Esterase 500 H, Urine RBC 0-5 SEEN, Urine WBC 10-25 SEEN, Ur Squamous Epith Cells 0 SEEN, Urine Bacteria 0 SEEN, Urine Mucus 0 SEEN 11/19/17 02:07: POC Glucose 118 H 11/19/17 05:30: WBC 13.4 H, RBC 4.16 L, Hgb 12.3, Hct 36.3 L, MCV 87.3, MCH 29.6, MCHC 33.9, RDW 12.6, RDW Differential 39.7, Plt Count 274, MPV 11.0, Immature Gran % (Auto) 0.400, Neut % (Auto) 74.2 H, Lymph % (Auto) 12.4 L, [place] % (Auto) 12.5 H, Eos % (Auto) 0.3, Baso % (Auto) 0.2, Absolute Neuts (auto) 9.9 H, Absolute Lymphs (auto) 1.66, Total Counted Not Reportable, Differential Comment SCANNED, Diff Path Review May foll 10/04/18 05:30: Sodium 137, Potassium 3.7, Chloride 104, Carbon Dioxide 23.0, Anion Gap 10, BUN 19 H, Creatinine 1.02, Estim Creat Clear Calc 44.92, Est GFR (MDRD) Af Amer 67, Est GFR (MDRD) Non-Af 56 L, BUN/Creatinine Ratio 18.6, Gluco se 131 H, Calcium 8.5 11/19/17 06:48: POC Glucose 115 H Current Medications Acetaminophen (Tylenol) 650 mg PO Q6H PRN PRN PRN Reason: Mild Pain (scale 0-3)/T>100.7 Amlodipine Besylate (Norvasc) 2.5 mg PO DAILY [facility] Aspirin (Ecotrin) 81 mg PO DAILY@0800 [facility] Atorvastatin Calcium (Lipitor) 5 mg PO QHS [facility] Bisacodyl (Dulcolax) 5 mg PO DAILY PRN PRN PRN Reason: Constipation Bupropion HCl (Wellbutrin Xl) 300 mg PO DAILY [facility] Diphenhydramine HCl (Benadryl) 25 mg PO QHS PRN PRN PRN Reason: INSOMNIA Donepezil HCl (Aricept) 10 mg PO DAILY [place] Glipizide (Glucotrol Xl) 5 mg PO DAILYCM [facility] Heparin Sodium (Porcine) (Heparin Na) 5,000 unit SC Q12 [facility] Hydralazine HCl (Apresoline Iv) 5 mg IV Q4H PRN PRN PRN Reason: SBP > 160 Sodium Chloride () 1,000 mls @ 75 mls/hr IV .[id number] [facility] Last Admin: 11/19/17 02:08 Dose: 75 mls/hr Ceftriaxone Sodium (Rocephin) 1 gm in 50 mls @ 100 mls/hr IV 2200 [facility] Influenza Virus Vaccine Quadrival (Fluarix/Fluzone) 0.5 ml IM .ONCE ONE Stop: 11/19/17 10:01 Magnesium Hydroxide (Milk Of Magnesia) 30 ml PO DAILY PRN PRN PRN Reason: Constipation Meloxicam (Mobic) 7.5 mg PO DAILY [facility] Metformin HCl (Glucophage) 1,000 mg PO DAILYCM [facility] Sodium Chloride () 5 - 30 ml IV UD PRN PRN Reason: SALINE FLUSH Medical Necessity - Tobacco Use Smoking Status: Never smoker Assessment/Plan All Active Problems Acute encephalopathy (Acute) Acute cystitis (Acute) he patient is a 77 year old F with a significant history of early dementia ; hypertension, diabetes, hyperlipidemia, who presents with progressively worsening lethargy and confusion that started about a week ago with SIRS; and abnormal urinalysis concerning for sepsis secondary to Cystitis. 1 acute encephalopathy mostly secondary to lower urinary tract infection/cystitis with possible baseline mild dementia/mild cognitive impairment: Patient had fever, leukocytosis, blood pressure 96/47 in ED and leukocytosis. In the morning, she had mild fever but blood pressure has improved. Lactic acid normal. Continue IV fluid as patient is dehydrated. On IV ceftriaxone. Blood culture and urine cultures are pending. Chest x-ray and CT head no acute pathology. Donezepil continued. 2. Diabetes mellitus type II: Blood sugars are reasonably well controlled. Continue glipizide. Will hold metformin. 3. Dehydration with prerenal azotemia with CKD stage III: Patient creatinine was 1.28, up from baseline around 1.0 but does not meet the criteria for acute kidney injury. Continue IV fluid resuscitation. 4. Comorbidities include hypertension and dyslipidemia: Home medication continued. DVT prophylaxis subcutaneous heparin. Laboratory Results 11/19/17 05:30: WBC 13.4 H, RBC 4.16 L, Hgb 12.3, Hct 36.3 L, MCV 87.3, MCH 29.6, MCHC 33.9, RDW 12.6, RDW Differential 39.7, Plt Count 274, MPV 11.0, Immature Gran % (Auto) 0.400, Neut % (Auto) 74.2 H, Lymph % (Auto) 12.4 L, [place] % (Auto) 12.5 H, Eos % (Auto) 0.3, Baso % (Auto) 0.2, Absolute Neuts (auto) 9.9 H, Absolute Lymphs (auto) 1.66, Total Counted Not Reportable, Differential Comment SCANNED, Diff Path Review June11/19/17 05:30: Sodium 137, Potassium 3.7, Chloride 104, Carbon Dioxide 23.0, Anion Gap 10, BUN 19 H, Creatinine 1.02, Estim Creat Clear Calc 44.92, Est GFR (MDRD) Af Amer 67, Est GFR (MDRD) Non-Af 56 L, BUN/Creatinine Ratio 18.6, Glucose 131 H, Calcium 8.5 11/19/17 06:48: POC Glucose 115 H Code Visit OBSV E&M: [id number] Subsequent observation care L3
[2017-11-19] MEDS: Aspirin E.C. 81 MG Tablet PO (09:22)
[2017-11-19] MEDS: metFORMIN HCl 1,000 MG Tablet 1000 MG PO (09:22)
[2017-11-19] MEDS: glipiZIDE XL 5 MG Tablet PO (09:29)
[2017-11-19 09:30] VITALS: BP 101/52; PULSE 78; RESP 18; TEMP 37; O2SAT 96
[2017-11-19] MEDS: buPROPion (XL) 300 MG TABLET.XL PO (09:30)
[2017-11-19] MEDS: amLODIPine 2.5 MG Tablet PO (09:30)
[2017-11-19] MEDS: Meloxicam 7.5 MG Tablet PO (09:30)
[2017-11-19] MEDS: Donepezil HCl 10 MG Tablet PO (09:30)
[2017-11-19] MEDS: Heparin Injection (Vial) 5,000 UNIT/ML VIAL 5000 UNIT SC ×2 (09:33→21:35)
[2017-11-19 11:16] LABS: Bedside Glucose 160 mg/dL (70-110)
--- NOTE | 2017-11-19 13:04 | CASEMGMT ---
RN CM Assessment. PCP: Dr. Soliz Pharmacy: [facility] DME: No DME -Intro role of CM to patient in room. She is awake, alert and oriented but states she feels fuzzy still. Pt stated she does not use DME, is independent, provides transportation. RNCM attempted call to @ home, however no answer. -PT/OT evaluations pending. DC PLAN: home on dc. Recommend pt have someone with her on dc for any assistance needs.
[2017-11-19 15:22] VITALS: BP 99/49; PULSE 82; RESP 18; TEMP 36.8; O2SAT 98
[2017-11-19 16:55] LABS: Bedside Glucose 136 mg/dL (70-110)
[2017-11-19 21:20] VITALS: BP 118/67; PULSE 74; RESP 18; TEMP 37.1; O2SAT 98
[2017-11-19] MEDS: Atorvastatin Calcium 10 MG Tablet 5 MG PO (21:34)
[2017-11-19] MEDS: Ceftriaxone 1 GM/50 ML BAG IV (21:35)
[2017-11-19 21:46] LABS: Bedside Glucose 101 mg/dL (70-110)
[2017-11-20 03:33] VITALS: BP 122/66; PULSE 73; RESP 18; TEMP 36.7; O2SAT 92
[2017-11-20] MEDS: 0.9% Normal Saline 1,000 ML 75 ML IV (03:38)
[2017-11-20 07:06] LABS: Bedside Glucose 91 mg/dL (70-110)
[2017-11-20] MEDS: Donepezil HCl 10 MG Tablet PO (09:16)
[2017-11-20] MEDS: glipiZIDE XL 5 MG Tablet PO (09:16)
[2017-11-20] MEDS: Meloxicam 7.5 MG Tablet PO (09:16)
[2017-11-20] MEDS: metFORMIN HCl 1,000 MG Tablet 1000 MG PO (09:16)
[2017-11-20] MEDS: Heparin Injection (Vial) 5,000 UNIT/ML VIAL 5000 UNIT SC (09:16)
[2017-11-20] MEDS: Aspirin E.C. 81 MG Tablet PO (09:16)
[2017-11-20] MEDS: amLODIPine 2.5 MG Tablet PO (09:17)
[2017-11-20] MEDS: buPROPion (XL) 300 MG TABLET.XL PO (09:17)
[2017-11-20 09:30] VITALS: BP 137/88; PULSE 71; RESP 16; TEMP 36.7; O2SAT 99
[2017-11-20 09:44] LABS: Absolute Lymphocyte Count 1.05 X10^3/ul (0.83-4.51); Absolute Neutrophil Count 6.6 X10^3/uL (2.0-7.7); Basophil# 0.03 X10^3/uL; Basophil% 0.4 % (0-1); Eosinophils% 1.2 % (0-5); Hematocrit 34.3 % (37-47); Hemoglobin 11.3 g/dl (12.0-15.0); Lymphocyte # 1.05 X10^3/ul (4.0); Lymphocyte % 12.4 % (19-41); Mean Corp Hgb Conc 32.9 g/gl (32-36); Mean Corpuscular Volume 88.2 fL (81-99); Mean Platelet Vol. 10.1 fl (6.2-12.0); Monocyte# 0.67 X10^3/uL; Monocyte% 7.9 % (0-10); Neutrophil % 77.6 % (47-70); POSITIVE COUNT NO; POSITIVE DIFFERENTIAL NO; POSITIVE MORPHOLOGY NO; Platelet Count 343 K/mm3 (150-450); RBC Distribution Width SD 41.6 fl (35.1-43.9); Red Blood Count 3.89 M/mm3 (4.2-5.4); White Blood Count 8.5 K/mm3 (4.4-11.0)
--- NOTE | 2017-11-20 10:33 | DS.PCM_ITS ---
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 History taken from the and patient was forgetful, confused, requiring frequent mental cues, recalls and directions to do simple things for last 4 days. The patient was seen and examined today Patient appears back to her normal baseline although she does not remember the events 4 days prior when she was confused and disoriented General: Alert, Oriented x3, Cooperative, according to speech. Back to normal baseline HEENT: Atraumatic, PERRLA, EOMI, Normocephalic Oral: Dry Mucosa Neck: Supple, No JVD, Negative Carotid Bruits Lungs: Clear to auscultation, Normal air movement Cardiovascular: Regular rate, Regular Rhythm, Normal S1, Normal S2, No murmurs Abdomen: Bowel Sounds Present, Soft, Non Tender, Non-Distended Extremities: No edema, Capillary Refill Less than 3 Seconds Skin: No rashes, No breakdown Musculoskeletal: No Tenderness to Palpation of Joints or Extremities Neurological: Cranial nerves II-XII grossly intact Psych/Mental Status: Normal Affect, Appropriate 1 acute encephalopathy mostly secondary to lower urinary tract infection/cystitis with possible baseline mild dementia/mild cognitive impairment: Patient had fever, leukocytosis, blood pressure 96/47 in ED and leukocytosis. In the morning, she had mild fever but blood pressure has improved. Lactic acid normal. Continue IV fluid as patient is dehydrated. On IV ceftriaxone. Chest x-ray and CT head no acute pathology. Donezepil continued. Appointment was made for outpatient neurology follow with Dr. Alfred for dementia workup.. Acute partially treated, gram-negative nadya lower UTI/cystitis: 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 Patient discharged on Duricef for 2 more days to complete a total of 5 days of antibiotics. 2. Diabetes mellitus type II: Blood sugars are reasonably well controlled. Continue glipizide. 3. Dehydration with prerenal azotemia with CKD stage III: Patient creatinine was 1.28, up from baseline around 1.0 but does not meet the criteria for acute kidney injury. Treated with IV fluid resuscitation. Creatinine improved, back to baseline 1.02. BUN 19. IV fluids stopped. 4. Comorbidities include hypertension and dyslipidemia: . DVT prophylaxis subcutaneous heparin. Discharge medication reconciliation done. Follow-up instructions completed. Follow with PCP in 1-2 weeks. Follow-up with Dr. Alfred as mentioned above for dementia workup. Total time spent, exact 35 minutes on discharge meds reconciliation, examination, review of imaging and blood test and discussion with the patient on follow-up instructions. 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 11/19/17 18:45 Mucosa - Nasopharyngeal Influenza Types A,B Direct FA (LEXY) - Final Laboratory Results 11/19/17 16:53: POC Glucose 136 H 11/19/17 21:26: POC Glucose 101 11/20/17 07:00: POC Glucose 91 11/20/17 09:32: WBC 8.5, RBC 3.89 L, Hgb 11.3 L, Hct 34.3 L, MCV 88.2, MCH 29.0, MCHC 32.9, RDW 13.0, RDW Differential 41.6, Plt Count 343, MPV 10.1, Immature Gran % (Auto) 0.500, Neut % (Auto) 77.6 H, Lymph % (Auto) 12.4 L, [place] % (Auto) 7.9, Eos % (Auto) 1.2, Baso % (Auto) 0.4, Absolute Neuts (auto) 6.6, Absolute Lymphs (auto) 1.05, Total Counted Not Reportable 11/20/17 10:55: POC Glucose 104 Home Medications: Medications to take at Discharge Aspirin E.C. [Ecotrin] 81 mg PO DAILY@0800 06/14/13 Biotin 500 mcg PO DAILY 06/14/13 Chlorhexidine Gluconate [Peridex] 15 ml MM BID 06/14/13 DiphenhydrAMINE [Benadryl] 25 mg PO QHS PRN PRN 06/14/13 Glipizide [Glucotrol Xl] 5 mg PO DAILY 06/14/13 Glucosamine Sulfate Dipot Chlr [Glucosamine Relief] 1,000 mg PO DAILY 06/14/13 Metformin HCl [Glucophage] 1,000 mg PO DAILY 06/14/13 [place]-3 Fatty Acids/Fish Oil [Fish Oil 1,000 mg Softgel] 1 each PO DAILY 06/14/13 Simvastatin [Zocor] 5 mg PO QHS 06/14/13 Ubidecarenone [Co Q-10] 100 mg PO DAILY 06/14/13 Valsartan/Hydrochlorothiazide [Diovan Hct 160-12.5 MG Tab] 1 tablet PO DAILY 06/14/13 buPROPion XL [Wellbutrin Xl] 300 mg PO DAILY 06/14/13 Amlodipine [Norvasc] 2.5 mg PO DAILY 11/18/17 Donepezil HCl [Donepezil HCl Odt] 10 mg PO DAILY 11/18/17 Meloxicam 7.5 mg PO DAILY 11/18/17 Cefadroxil [Duracef] 500 mg PO BID #4 capsule 11/20/17 Following Prescrptions Were Given to Patient: Cefadroxil [Duracef] 500 mg PO BID #4 capsule Primary Care Physician: Ricardo Soliz MD [Primary Care Provider] - Please follow up with your Primary Care Physician in: in 2 weeks Please Follow Up With: George Alfred MD When: in 3-4 weeks for dementia work up Medical Necessity - Tobacco Use Smoking Status: Never smoker Meaningful Use Info Meaningful Use Diagnoses (Choose all that apply): None applicable Code Visit Inpatient E&M: [id number] [facility]
--- NOTE | 2017-11-20 10:33 | DCINST_ITS ---
- Discharge Diagnoses Current Active Problems: Current Active and Chronic Problems Acute encephalopathy (Acute) Acute cystitis (Acute) You will use the following diet at home:: Calorie/Carbohydrate Controlled (specify 1200, 1400, etc), Cardiac Your food should be the consistency of: Regular Allergies/Adverse Reactions: Allergies No Known Allergies Allergy (Verified 11/18/17 20:27) Medications to take at Discharge Aspirin E.C. [Ecotrin] 81 mg PO DAILY@0800 06/14/13 Biotin 500 mcg PO DAILY 06/14/13 Chlorhexidine Gluconate [Peridex] 15 ml MM BID 06/14/13 DiphenhydrAMINE [Benadryl] 25 mg PO QHS PRN PRN 06/14/13 Glipizide [Glucotrol Xl] 5 mg PO DAILY 06/14/13 Glucosamine Sulfate Dipot Chlr [Glucosamine Relief] 1,000 mg PO DAILY 06/14/13 Metformin HCl [Glucophage] 1,000 mg PO DAILY 06/14/13 [place]-3 Fatty Acids/Fish Oil [Fish Oil 1,000 mg Softgel] 1 each PO DAILY 06/14/13 Simvastatin [Zocor] 5 mg PO QHS 06/14/13 Ubidecarenone [Co Q-10] 100 mg PO DAILY 06/14/13 Valsartan/Hydrochlorothiazide [Diovan Hct 160-12.5 MG Tab] 1 tablet PO DAILY 06/14/13 buPROPion XL [Wellbutrin Xl] 300 mg PO DAILY 06/14/13 Amlodipine [Norvasc] 2.5 mg PO DAILY 11/18/17 Donepezil HCl [Donepezil HCl Odt] 10 mg PO DAILY 11/18/17 Meloxicam 7.5 mg PO DAILY 11/18/17 Cefadroxil [Duracef] 500 mg PO BID #4 capsule 11/20/17 The following prescriptions were given: Cefadroxil [Duracef] 500 mg PO BID #4 capsule Primary Care Physician: Ricardo Soliz MD [Primary Care Provider] - Please follow up with your Primary Care Physician in: in 2 weeks Test Results: Test results from this visit will be discussed in further detail at your follow- up appointment, if applicable. Please Follow Up With: George Alfred MD When: in 3-4 weeks for dementia work up
[2017-11-20 11:00] LABS: Bedside Glucose 104 mg/dL (70-110)
--- NOTE | 2017-11-20 11:50 | CASEMGMT ---
OLINDA LAKHANI NOTE: *Dr Perez asked for appt to be made with Dr Alfred in 3-4 weeks. Call placed to Dr Alfred's office. First available appt is not until Mar 02, 2018. Dr Mckinney's 1st available appt is not until March. Appt made for Mar 02, 2018 @ 1100. Dr Perez made aware this is the 1st available appt and stated okay. *Pt's made aware of appt date and time and given print-out of follow-up appt. He was made aware if he would like to try and have pt seen earlier than Mar 02, he may call the office to see if they have any cancellations. given Dr Alfred's phone number and location of office. also made aware he is to call PCP to make follow-up appt in 2 weeks. Abdiel OLEA RN CM
[2017-11-20 15:18] LABS: Pathologist Review Reviewed
== END 2017-11-20 12:10 | disposition home or self-care (01) ==
LOC: ED 21:22 → MS3 11-19 00:53
PROVIDERS: Admitting Provider Hospitalist; Emergency Provider Emergency Medicine; Family Provider Internal Medicine; PCP Internal Medicine; Visit Provider Internal Medicine
DX: A41.9 Sepsis, unspecified organism (principal); G93.40 Encephalopathy, unspecified; N30.00 Acute cystitis without hematuria; B96.89 Other specified bacterial agents as the cause of diseases classified elsewhere; B96.1 Klebsiella pneumoniae [K. pneumoniae] as the cause of diseases classified elsewhere; E86.0 Dehydration; E78.5 Hyperlipidemia, unspecified; Z23 Encounter for immunization; F32.9 Major depressive disorder, single episode, unspecified; F41.9 Anxiety disorder, unspecified; F03.90 Unspecified dementia, unspecified severity, without behavioral disturbance, psychotic disturbance, mood disturbance, and anxiety; E11.22 Type 2 diabetes mellitus with diabetic chronic kidney disease; I12.9 Hypertensive chronic kidney disease with stage 1 through stage 4 chronic kidney disease, or unspecified chronic kidney disease; N18.3 Chronic kidney disease, stage 3 (moderate); Z79.899 Other long term (current) drug therapy; Z79.84 Long term (current) use of oral hypoglycemic drugs; Z79.82 Long term (current) use of aspirin
CPT/HCPCS: 36415; 70450; 71045; 80048; 80053; 81001; 82550; 82962; 83605; 84484; 85025; 85610; 85730; 87040; 87077; 87086; 87088; 87186; 87804; 93005; 96361; 96365; 96366; 96372; 97161; 97165; 99218; 99283; J7030; 90686; A4216; G0378